=== PATIENT | female | born 1980 | race Caucasian/White ===

== ENCOUNTER 2018-07-28 21:28 | Emergency (ER) | payer SELFPAY ==
[~2018-07-28] VITALS: Ht 157.5 cm; Wt 80.7 kg
--- NOTE | 2018-07-28 21:48 | NUR ---
PT HERE FOR HEAVY MENSTRAL BLEEDING WITH CRAMPS. PT SAYS CRAMPING AND BLEEDING IS HEAVIER THEN NORMAL. VSS. PT DENIES ANY OTHER MED HX. CALL LIGHT IN REACH
--- NOTE | 2018-07-28 22:12 | NUR ---
[facility] SENT. PT TO US.
[2018-07-28 22:19] LABS: CULTURE INDICATED? NO; MICROSCOPIC AUTO
[2018-07-28 22:38] LABS: BASOPHILS # (AUTO) 0.03 x10^3/uL (0-0.1); BASOPHILS % (AUTO) 0 % (0-1); EOSINOPHILS # (AUTO) 0.09 x10^3/uL (0-0.4); EOSINOPHILS % (AUTO) 1 % (1-7); LYMPHOCYTES # (AUTO) 2.87 x10^3/uL (1-3.4); LYMPHOCYTES % (AUTO) 35 % (22-44); MD NO; MEAN CORPUSCULAR HEMOGLOBIN 29.4 pg (27.0-34.8); MEAN CORPUSCULAR HGB CONC 32.8 g/dL (32.4-35.8); MEAN CORPUSCULAR VOLUME 89.5 fL (80-100); MEAN PLATELET VOLUME 7.9 fL (7.4-10.4); MONOCYTES # (AUTO) 0.38 x10^3/uL (0.2-0.8); MONOCYTES % (AUTO) 5 % (2-9); NEUTROPHILS # (AUTO) 4.88 x10^3/uL (1.8-6.8); NEUTROPHILS % (AUTO) 59 % (42-75); PLATELET COUNT 261 x10^3/uL (130-400); RED BLOOD COUNT 4.06 x10^6/uL (3.82-5.3); RED CELL DISTRIBUTION WIDTH 13.9 % (9.6-15.2)
[2018-07-28 22:50] LABS: ALBUMIN 3.9 g/dL (3.4-5.0); ANION GAP 8 mmol/L (5-15); CALCIUM 8.5 mg/dL (8.5-10.1); CHLORIDE 110 mmol/L (98-107)
[2018-07-28 23:08] LABS: ALANINE AMINOTRANSFERASE 38 U/L (12-78); ALKALINE PHOSPHATASE 66 U/L (45-117); BILIRUBIN,TOTAL 0.6 mg/dL (0.2-1.0); CREATININE 0.87 mg/dL (0.55-1.02); TOTAL PROTEIN 7.7 g/dL (6.4-8.2)
--- NOTE | 2018-07-28 23:10 | NUR ---
PT BACK FROM US AND RESTING. WAITING FOR RESULTS. PT HAS NO NEEDS AND IS IN NAD. CALL LIGHT IN REACH
[2018-07-28] MEDS ORDERED: ACETAMINOPHEN 500 MG TABLET ONE (23:50)
[2018-07-29] MEDS ORDERED: ACETAMINOPHEN 500 MG TABLET PO ONE
[2018-07-29 00:20] VITALS: BP 121/72
== END 2018-07-29 00:56 | disposition home or self-care (01) ==
LOC: ED 22:41
DX: O20.0 Threatened abortion (principal); Z3A.01 Less than 8 weeks gestation of pregnancy
CPT/HCPCS: 36415; 76830; 80053; 81001; 84702; 84703; 85025; 86901; 99284

== ENCOUNTER 2018-07-30 09:57 | Emergency (ER) | payer SELFPAY ==
[~2018-07-30] VITALS: Ht 152.4 cm; Wt 81.0 kg
[2018-07-30 10:07] VITALS: BP 120/79
--- NOTE | 2018-07-30 12:18 | NUR ---
Patient/Caregiver given discharge instructions and they have confirmed that they understand the instructions. Patient ambulatory with steady gait.
== END 2018-07-30 12:19 | disposition home or self-care (01) ==
LOC: ED 11:09
DX: O03.4 Incomplete spontaneous abortion without complication (principal)
CPT/HCPCS: 36415; 84702; 99283